=== PATIENT | male | born 1980 | race Caucasian/White ===

== ENCOUNTER → 2020-12-24 | Outpatient (CLI) | payer OTHER ==
--- NOTE | 2021-01-10 11:44 | PF ---
[address] [address] PULMONARY FUNCTION REPORT Name: MAYITO BILLINGSLEY Room: [facility]#: [id number] Admission: 12/24/20 Attend Phys: Physician not on staf Discharge: Date of : 82 Report #: [id number] THIS REPORT FOR: cc: Black Pantoja John E. DO Pervez, Adeel MD ~ DOC #: [id number] Sanjiv Wharton MD DATE OF VISIT: 12/24/2020 PULMONARY FUNCTION TEST The FEV1/FVC ratio is severely decreased to 40%. The FVC is normal at 104%, but the FEV1 is decreased to 52%. The FEF 25-75 is also severely decreased to 12%. After the administration of a bronchodilator, there is an 18% increase in FVC and a 27% increase in FEV1. The FEF 25-75 also increases by 69%. The patient's post-bronchodilator FEV1 is 2.50 liters. FLOW VOLUME LOOP: Concave upwards. LUNG VOLUMES: The total lung capacity is increased to 135% with residual volume increased to 166%. DIFFUSION CAPACITY: The DLCO as adjusted for hemoglobin is normal at 85%. IMPRESSION: 1. There is a significant obstruction present. If evaluating by FEV1 criteria alone obstruction would be moderate. However, there is a severe reduction in the FEV1/FVC ratio to only 40% and therefore the patient's obstruction may in fact be more severe than indicated by the FEV1 alone. There is evidence of reversibility. 2. There is marked hyperinflation secondary to obstruction. 3. The DLCO as adjusted for hemoglobin is normal at 85%. MD YFN Bowens/TAMIE <ELECTRONICALLY SIGNED> By: Sanjiv Wharton MD 01/10/21 1144 [id number] Wharton MD /nt
== END ==
LOC: M.PUL 12-19 10:00
DX: J44.9 Chronic obstructive pulmonary disease, unspecified (principal); R06.00 Dyspnea, unspecified; J45.909 Unspecified asthma, uncomplicated; R05 Cough